=== PATIENT | female | born 1945 | race Caucasian/White ===

== ENCOUNTER 2017-11-11 16:30 | Emergency (ER) | payer MEDICARE, SELFPAY ==
[2017-11-11] VITALS (24 sets, daily range): BP systolic 115–162; BP diastolic 60–89; PULSE 59–75; RESP 9–22; TEMP 36.5; O2SAT 94–99
--- NOTE | 2017-11-11 16:53 | DI.RPTCT_ITS ---
SYMPTOM/DIAGNOSIS: DIZZY, SHAKY, TINGLING IN FACE, R/O ACUTE CVA CT BRAIN: Non contrast. Comparison 10/10/14. The ventricles and sulci are consistent with the patient's age. There is unchanged enlargement of the right temporal horn. This has been stable since 2015. No acute intracranial hemorrhage, midline shift, mass effect or infarct is seen. The calvarium is intact. The visualized paranasal sinuses are clear. The mastoid air cells are well pneumatized. IMPRESSION: No acute intracranial process.
--- NOTE | 2017-11-11 16:53 | ED.GENADUL_ITS ---
Disposition Clinical Impression: Hypoglycemia, Facial paresthesia Disposition: HOME Condition: Stable Instructions: Non-diabetic Hypoglycemia (ED), Paresthesia (ED) Additional Instructions: Your urinalysis today noted a minimal amount of white blood cells. You may or may not have a urinary tract infection. You should receive a call within the next few days regarding the results of your urine culture if they are positive for infection. If you do not hear from us, you can call the emergency department for the results to determine whether or not he should start the antibiotic. Drink plenty of fluids and eat a well-balanced diet. Check your sugar regularly as needed. Follow-up with your primary care doctor within the next week. Return to the emergency department with any worsening or new concerning symptoms. Prescriptions: Sulfameth/Trimeth Ds [Bactrim Ds Tablet] 1 each PO BID 3 Days tab Medical Decision Making - Lab Data Laboratory Tests 11/11/17 11/11/17 11/11/17 17:33 17:45 17:45 WBC 10.56 RBC 4.79 Hgb 13.2 Hct 41.5 MCV 86.6 MCH 27.6 MCHC 31.8 L RDW 14.9 H Plt Count 272 MPV 9.5 Immature Gran % 0.2 Neutrophils % 74.1 Lymphocytes % 18.0 Monocytes % 5.9 Eosinophils % 1.4 Basophils % 0.4 Absolute Neutrophils 7.83 H Absolute Lymphocytes 1.90 Absolute Monocytes 0.62 Absolute Eosinophils 0.15 Absolute Basophils 0.04 Sodium 137 Potassium 4.5 Chloride 101 Carbon Dioxide 28.9 Anion Gap 7.1 BUN 22 H Creatinine 0.88 Estimated GFR/1.73 m2 >= 60.00 Glucose 90 Calcium 8.8 Magnesium 2.1 Total Bilirubin 0.3 AST 19 ALT 34 Alkaline Phosphatase 91 Troponin I < 0.02 Total Protein 7.9 Albumin 3.9 Urine Color Yellow Urine Clarity Clear Urine pH 5.5 Ur Specific [place] 1.010 Urine Protein Negative Urine Ketones Negative Urine Blood Trace-intact H Urine Nitrite Negative Urine Bilirubin Negative Urine Urobilinogen 0.2 Ur Leukocyte Esterase Small H Urine RBC 0-2 Urine WBC 0-2 Ur Epithelial Cells Negative Urine Crystals Negative Urine Bacteria Negative Urine Casts Negative Urine Mucus Negative Urine Other Negative Ur Culture Indicated? Yes Urine Glucose Negative 11/11/17 1938: 64 bpm. Sinus. No acute ST elevation or depression. - Radiology Data Radiology results: report reviewed, image reviewed CT head: Significant dilatation of the right temporal horn, stable since 2015. Additional mild senescent changes with no acute abnormality evident. Chest x-ray: Negative - Medical Decision Making 78-year-old female with history of hypoglycemia for several years who presents with a hypoglycemic episode associated with sweating, shakiness, shortness of breath and left-sided facial tingling within the past hour. Leukosis 60 at home. After taking 2 glucose tablets and orange juice her glucose was 112. Glucose on arrival here 136. She has no focal deficits. She is awake and alert , airway intact and she appears in no acute distress. She denies any shaking, sweating, shortness of breath at this time and is still complaining of mild left facial tingling. Considering patient's age, will obtain labs, CT head, chest x-ray and give small bolus IV fluids and recheck glucose. Labs and imaging reviewed. No acute findings on labs. Glucose 90. CT head negative for acute findings. She is aware of a dilatation of her right temporal horn which is unchanged from 2015. Chest x-ray negative. EKG negative for acute findings. Patient states she feels good and denies any acute symptoms at this time. Her left facial tingling is nearly fully resolved. Urinalysis noted 0-2 WBCs and small leukocyte esterase and urine culture was sent. Patient has a history of urinary tract infections and requests an antibiotic. She would rather hold on taking this antibiotic until notified about the urine culture. She was informed that if her urine culture is positive, she will be called and recommended to start the antibiotic. She was also informed that if she does not receive a call, she should call the emergency department for her results. Repeat Accu-Chek 94. Patient is from [place] but is staying here until Wednesday. She was advised to follow-up with her primary care doctor for reevaluation and return here at anytime if worse. History of Present Illness - General Chief complaint: Diabetes Stated complaint: UNKNOWN Time Seen by Provider: 11/11/17 16:40 Source: patient Mode of arrival: ambulatory Limitations: no limitations - History of Present Illness Initial comments: Patient is a 72-year-old female with a history of breast cancer and hypoglycemia who presents for an episode of sweating, shaking and shortness of breath. Patient states she checked her glucose and it was 60. Patient states she has frequent episodes of hypoglycemia occurring 1-2 times weekly. States she is unsure of the cause. States she was initially diagnosed with diabetes after taking Arimidex for her breast cancer but once her Arimidex was stopped 3 years ago, she developed hypoglycemia. States she has glucose tablets at home as needed for this. States after her glucose was 60, she took 2 glucose tablets and orange juice. Patient also admits to having left-sided facial tingling since onset of her shaking but she denies any extremity weakness per patient also admits to mild lower abdominal discomfort since this morning. She denies fever, chest pain, nausea, vomiting, diarrhea, urinary symptoms, facial droop, extremity weakness or numbness. - Related Data Vitamin D 6,000 mg PO HS 01/15/13 Ranitidine HCl [Zantac] 150 mg PO DAILY 06/12/14 Atorvastatin [Lipitor] 10 mg PO HS 10/10/14 Sertraline [Zoloft] 50 mg PO DAILY 05/01/16 Sulfameth/Trimeth Ds [Bactrim Ds Tablet] 1 each PO BID 3 Days tab 11/11/17 Allergies Allergy/AdvReac Type Severity Reaction Status Date / Time ondansetron Allergy Intermediate Hives Unverified 11/11/17 18:09 morphine AdvReac Intermediate Nausea Unverified 11/11/17 18:09 oxycodone AdvReac Intermediate Headache Unverified 11/11/17 18:09 Penicillins AdvReac Mild Skin Rash Unverified 11/11/17 18:09 silver AdvReac Mild Topical Unverified 11/11/17 18:09 [From Tegaderm AG Mesh] Irritation novacaine Allergy Severe Dizziness/L Uncoded 11/11/17 18:11 ightheade all tape Allergy Mild Topical Uncoded 11/11/17 18:11 Irritation Review of Systems Constitutional: denies: chills, fever Eyes: denies: eye pain ENT: denies: ear pain, dental pain Respiratory: denies: cough, shortness of breath Cardiovascular: denies: chest pain, dyspnea on exertion Gastrointestinal: denies: abdominal pain, nausea, vomiting Genitourinary: denies: urgency, dysuria, frequency Musculoskeletal: denies: back pain Skin: denies: rash, lesions Neurological: denies: headache, weakness, numbness Past Medical History - Past Medical History Medical history: GERD, hyperlipidemia Breast cancer Surgical history: hysterectomy, other (B/l mastectomy) Family history: CAD/AK (mother) - Social History Smoking status: never smoker Alcohol use: none Drug use: none General Exam - General Limitations: no limitations General appearance: alert, in no apparent distress - Eye Eye exam: Present: EOMI - Respiratory Respiratory exam: Present: normal lung sounds bilaterally. Absent: respiratory distress, wheezes, rales, rhonchi, stridor - Cardiovascular Cardiovascular Exam: Present: regular rate, normal rhythm. Absent: bradycardia , tachycardia - GI/Abdominal GI/Abdominal exam: Present: soft, normal bowel sounds. Absent: distended, tenderness, guarding, rebound, rigid - Extremities Exam Extremities exam: Present: full ROM - Neurological Exam Neurological exam: Present: alert, oriented X3, CN II-XII intact, other (MS 5/5 b/l UE/LE. ). Absent: motor sensory deficit - Psychiatric Psychiatric exam: Present: normal affect - Skin Skin exam: Present: warm, dry, intact Course Vital Signs - 24 hr 11/11/17 16:44 Temperature 97.7 F Pulse 67 Respiratory 18 Rate Blood Pressure 139/61 Pulse Oximetry 97
--- NOTE | 2017-11-11 17:14 | DI.REPORT_ITS ---
SYMPTOM/DIAGNOSIS: SOB, DIZZINESS, R/O PNEUMONIA CHEST X-RAY: Frontal and lateral views. Comparison 05/01/16. Heart size and pulmonary vasculature within normal limits. There is plate atelectasis or scarring in the left lung base. No focal consolidating infiltrate, effusion or pneumothorax is identified. There are again seen surgical clips along the left anterior chest wall. Degenerative changes are seen in the spine. IMPRESSION: No acute pulmonary process.
--- NOTE | 2017-11-11 17:42 | DI.VRAD_ITS ---
EXAM: CT Head Without Intravenous Contrast CLINICAL HISTORY: 72 years old, female; Signs and symptoms; Other: Dizzy, shaky, tingling in face, rule out CVA TECHNIQUE: Axial computed tomography images of the head/brain without intravenous contrast. All CT scans at this facility use at least one of these dose optimization techniques: automated exposure control; mA and/or kV adjustment per patient size (includes targeted exams where dose is matched to clinical indication); or iterative reconstruction. Coronal and sagittal reformatted images were created and reviewed. COMPARISON: CT - HEAD WITHOUT CONTRAST 2014-10-10 10:23 FINDINGS: Brain: Unremarkable. No hemorrhage. No significant white matter disease. No edema. Ventricles: There is mild, diffuse involutional change with mild associated ventriculomegaly. Bones/joints: Unremarkable. No acute fracture. Soft tissues: Unremarkable. Sinuses: Unremarkable as visualized. No acute sinusitis. Mastoid air cells: Unremarkable as visualized. No mastoid effusion. Other findings: There is again significant dilatation of the right temporal horn, stable since 2014. IMPRESSION: There is again significant dilatation of the right temporal horn, stable since 2015. Additional mild senescent changes with no acute abnormality evident. Dictated and Authenticated by: Vikram Nina MD. Ordering:CJ KING MD
--- NOTE | 2017-11-11 17:43 | DI.VRAD_ITS ---
EXAM: XR Chest, 2 Views CLINICAL HISTORY: 72 years old, female; Signs and symptoms; Shortness of breath and other: Dizziness, rule out pneumonia TECHNIQUE: Frontal and lateral views of the chest. COMPARISON: CR - PORTABLE CHEST ONE VIEW 2016-05-01 22:27 FINDINGS: Lungs: There is minimal linear atelectasis or scarring left lung base. Pleural space: Unremarkable. No pneumothorax. Heart: Unremarkable. No cardiomegaly. Mediastinum: Unremarkable. Bones/joints: There is mild dextroscoliosis of the midthoracic spine. Soft tissues: There are clips along the left anterior chest wall. Vasculature: There is again tortuosity of the descending aorta. IMPRESSION: No acute findings. Dictated and Authenticated by: Vikram Nina MD. Ordering:CJ KING MD
[2017-11-11 17:45] LABS: Bilirubin Negative (Negative); Blood Trace-intact (Negative); Clarity Clear; Glucose Negative (Negative); Ketones Negative (Negative); Leukocyte Esterase Small (Negative); Nitrite Negative (Negative); Urobilinogen 0.2 EU/dL (Up TO 0.2); pH 5.5 (5-8)
[2017-11-11 18:03] LABS: Abs Immature Grans 0.02 k/cumm (0.0-0.09); Absolute Basophil Count 0.04 k/cumm (0.0-0.2); Absolute Eosinophil Count 0.15 k/cumm (0.0-0.7); Absolute Monocyte Count 0.62 k/cumm (0.11-0.7); Absolute Neutrophil Count 7.83 k/cumm (1.2-6.7); Basophils % 0.4; Eosinophils % 1.4; HCT 41.5 % (36.0-46.0); HGB 13.2 g/dL (12.0-15.5); Immature Grans % 0.2; Mean Corp. HGB Concentration 31.8 g/dL (32.0-36.0); Mean Corpuscular Hemoglobin 27.6 pg (27.0-33.0); Mean Corpuscular Volume 86.6 fL (80-95); Mean Platelet Volume 9.5 fL (8.0-11.0); Monocytes % 5.9; Neutrophils % 74.1; Platelet Count 272 x1000/uL (130-400); RBC 4.79 m/cumm (4.00-5.20); RBC Distribution Width 14.9 % (11.7-14.6); White Blood Cell Count 10.56 k/cumm (4.4-10.8)
[2017-11-11 18:09] LABS: Bacteria Negative HPF (Negative); C & S Indicated? Yes; Casts Negative LPF (Negative); Crystals Negative HPF (Negative); Epithelial Cells Negative HPF (Negative); Mucus Negative (Negative); Other Cells Negative (Negative); RBC 0-2 (0-2); WBC 0-2 HPF (0-5)
[2017-11-11 18:18] LABS: ALT 34 U/L (12-78); AST 19 U/L (15-37); Albumin 3.9 g/dL (3.4-5.0); Alkaline Phosphatase 91 U/L (46-116); Anion Gap 7.1 mmol/L (3-11); BUN 22 mg/dL (7-18); Bilirubin, Total 0.3 mg/dL (0.2-1.0); CO2 28.9 mmol/L (21.0-32.0); CREATININE 0.88 mg/dL (0.55-1.02); Calcium 8.8 mg/dL (8.5-10.1); Chloride 101 mmol/L (98-107); Glucose 90 mg/dL (70-100); Magnesium 2.1 mg/dL (1.8-2.4); Potassium 4.5 mmol/L (3.5-5.1); Sodium 137 mmol/L (136-145); Total Protein 7.9 g/dL (6.4-8.2)
[2017-11-11 18:20] LABS: Troponin I < 0.02 ng/mL (0.00-0.06)
--- NOTE | 2017-11-13 21:32 | ED.FU.B ---
- Follow Up Follow Up Plan: Patient was seen here 2 days ago and had a urinalysis that noted 0-2 WBCs but had history of UTI and was sent home with Bactrim to start if positive culture. Culture results note a 10,000-50,000 gram-positive jennifer. Patient was called at home and she states she is not having any symptoms and she feels well. Patient was instructed to hold on taking the antibiotic for now as there is minimal colony count and she is asymptomatic. Patient is agreeable with this plan.
== END 2017-11-11 20:37 | disposition home or self-care (01) ==
PROVIDERS: Emergency Provider Physician Assistant
DX: E16.2 Hypoglycemia, unspecified (principal); R20.2 Paresthesia of skin; Z87.440 Personal history of urinary (tract) infections
CPT/HCPCS: 70450; 71046; 93005; 99285 ×2; 36415; 36416; 80053; 82962; 81003; 81015; 83735; 84484; 85025; 87086; 93010